=== PATIENT | female | born 1955 | race Caucasian/White ===

== ENCOUNTER 2017-01-04 11:11 | Emergency (ER) | payer BC ==
[2017-01-04] MEDS ORDERED: Fluorescein 1 MG Ophth Strip EYELF ONE (11:33)
[2017-01-04] MEDS ORDERED: Tetracaine 0.5% 2 ML Bottle EYELF ONE (11:33)
[2017-01-04 11:39] VITALS: BP 139/61
--- NOTE | 2017-01-04 12:02 | EDM.PDOC ---
ED HPI EYE COMPLAINT - General Chief Complaint: ENT Problem Stated Complaint: PINK EYE Time Seen by Provider: 01/04/17 11:28 Source: Reports: Patient, RN, RN notes reviewed History Limitations: Reports: No limitations - History of Present Illness INITIAL COMMENTS - FREE TEXT/NARRATIVE: Patient presents to the ED at [facility] with concerns of worsening pink eye and possible foreign body of the left eye. Patient states she was seen at a clinic last Thursday and diagnosis with bacterial conjunctivitis of the left eye. She was started on Ofloxacin drops QID and have been using them as prescribed. Patient states she continues to have drainage, eye pain, and FB sensation. Patient denies any trauma or injury to the left eye. Symptom Onset Date: 12/31/16 Timing/Duration: Reports: Getting worse Location: left eye Quality: Reports: Dull Severity: mild Improves with: Reports: None Worsens with: Reports: Movement Context: Reports: other (unknwon) Associated Symptoms (Eye): Reports: pain, eyelid redness, eyelid matting, orbital matting, FB sensation. Denies: burning, itching, decreased/blurred, vision, double vision, sensitivity to light FLOOR MANAGER (EYE): other (Ofloxacin drops) - Related Data Allergies/ADRs: Allergies meperidine [From Demerol] Allergy (Verified 01/04/17 11:31) Vomiting Home Meds: Ambulatory Orders Medication Instructions Recorded Confirmed Aspirin 81 mg DAILY 01/04/17 01/04/17 Levothyroxine Sodium [Synthroid] 137 mcg DAILY 01/04/17 01/04/17 Ofloxacin [Ocuflox 0.3% Ophth Soln] 1 drop QID 01/04/17 01/04/17 Omeprazole 40 mg DAILY 01/04/17 01/04/17 Pravastatin Sodium [Pravachol] 40 mg BEDTIME 01/04/17 01/04/17 Quinapril [Accupril] 20 mg DAILY 01/04/17 01/04/17 glipiZIDE [Glipizide ER] 20 mg DAILY 01/04/17 01/04/17 metFORMIN HCl [Metformin HCl] 1,000 mg BID 01/04/17 01/04/17 Past Medical History HEENT History: Reports: Cataract Cardiovascular History: Reports: High cholesterol, Hypertension Gastrointestinal History: Reports: Other (see below) Other Gastrointestinal History: acid reflux Endocrine/Metabolic History: Reports: Diabetes, type II, Hypothyroidism - Past Surgical History HEENT Surgical History: Reports: Cataract surgery GI Surgical History: Reports: Cholecystectomy Female Surgical History: Reports: section Social & Family History - Tobacco Use Smoking Status *Q: Former Smoker - Recreational Drug Use Recreational Drug Use: No ED ROS GENERAL - Review of Systems Review Of Systems: See Below Constitutional: Denies: fever, chills, weakness HEENT: Reports: Eye discharge, Eye pain Respiratory: Denies: shortness of breath, cough Cardiovascular: Denies: Chest pain, Palpitations Skin: Reports: no symptoms Neurological: Denies: dizziness, headache ED EXAM GENERAL W FULL EYE - Physical Exam Exam: See Below Exam Limited By: No limitations General Appearance: alert, no apparent distress Eye Exam: left eye: conjunctival injection, corneal abrasion, bilateral eye: EOMI, PERRL Eyelids: right: normal appearance, left: erythema Conjunctiva & Sclera: right: normal appearance, left: injected Cornea Exam: right: normal appearance, left: corneal abrasion, examined with flourescein Extraocular Movements: bilateral: intact Pupils: normal accommodation Pupillary Size: bilateral: 3 mm Pupillary Reaction: bilateral: brisk Ears: normal external exam, normal canal, hearing grossly normal, normal TMs Throat/Mouth: Normal inspection, Normal oropharynx, No airway compromise Neck: supple Respiratory/Chest: no respiratory distress, lungs clear, normal breath sounds Cardiovascular: normal peripheral pulses, regular rate, rhythm Neurological: alert, oriented Skin Exam: Warm, Dry, Intact, Normal color, No rash ED EYE w/ Add Procedure - Eye Procedure Alcaine Drops Administered: Yes Eye Irrigated w/ Saline (ccs): 3 Progress: Tetracaine instilled into left eye. Eye stained. Corneal abrasion at 9 o'clock position. No FB noted. Patient tolerated well. No complications. Course - Vital Signs Last Recorded V/S: Last Vital Signs Temp 36.3 C 01/04/17 11:20 Pulse 71 01/04/17 11:20 Resp 16 01/04/17 11:20 BP 139/61 01/04/17 11:20 Pulse Ox - Orders/Labs/Meds Orders: Active Orders 24 hr Category Date Time Status CULTURE EYE [RM] Stat Lab 01/04/17 11:29 Received Meds: Medications Discontinued Medications Generic Name Dose Route Start Last Admin Trade Name Freq PRN Reason Stop Dose Admin Fluorescein Sodium 1 mg 01/04/17 11:33 01/04/17 11:45 Ful-Sheila EYELF 01/04/17 11:34 1 mg ONETIME ONE Administration Tetracaine 1 ml 01/04/17 11:33 01/04/17 11:45 Pontocaine 0.5% Ophth Drops EYELF 01/04/17 11:34 3 drop ONETIME ONE Administration Departure - Departure Time of Disposition: 12:03 Disposition: Home, Self-Care 01 Condition: good Clinical Impression: Corneal abrasion, left Qualifiers: Encounter type: initial encounter Qualified Code(s): S05.02XA - Injury of conjunctiva and corneal abrasion without foreign body, left eye, initial encounter Instructions: Corneal Abrasion Forms: ED Department Discharge Additional Instructions: 1. Continue to use eye drops 2. Avoid rubbing the eyes 3. Wash hands frequently 4. You will be called tomorrow from [place] to set up the eye doctor appointment in [place]. - Problem List Review Problem List Initiated/Reviewed/Updated: Yes - My Orders Last 24 Hours: My Active Orders 01/04/17 11:29 CULTURE EYE [RM] Stat - Assessment/Plan Last 24 Hours: My Active Orders 01/04/17 11:29 CULTURE EYE [RM] Stat
== END 2017-01-04 12:10 | disposition home or self-care (01) ==
LOC: VM.ED 11:11
DX: S05.02XA Injury of conjunctiva and corneal abrasion without foreign body, left eye, initial encounter (principal); E78.00 Pure hypercholesterolemia, unspecified; I10 Essential (primary) hypertension; E11.9 Type 2 diabetes mellitus without complications; E03.9 Hypothyroidism, unspecified; Z98.49 Cataract extraction status, unspecified eye; Z90.49 Acquired absence of other specified parts of digestive tract; Z98.890 Other specified postprocedural states; Z87.891 Personal history of nicotine dependence; Z88.5 Allergy status to narcotic agent; Z79.82 Long term (current) use of aspirin; Z79.899 Other long term (current) drug therapy; X58.XXXA Exposure to other specified factors, initial encounter
CPT/HCPCS: 87070; 87077; 99283